=== PATIENT | female | born 1935 | race Caucasian/White ===

== ENCOUNTER 2021-10-20 21:35 | Inpatient (IN) | payer MEDICARE ==
[~2021-10-20] VITALS: Ht 157.5 cm; Wt 52.4 kg
[2021-10-20 22:29] LABS: BASOPHILS ABSOLUTE AUTO 0.02 K/mm3 (0.00-0.23); BASOPHILS PERCENT AUTO 0 % (0-2); EOSINOPHILS ABSOLUTE AUTO 0.03 K/mm3 (0.00-0.68); EOSINOPHILS PERCENT AUTO 0 % (0-6); Hematocrit 32.1 % (33.0-51.0); Hemoglobin 10.7 g/dL (11.5-16.0); IMMATURE GRAN ABSOLUTE AUTO 0.07 K/mm3 (0.00-0.10); IMMATURE GRAN PERCENT AUTO 1 % (0-1); LYMPHOCYTES ABSOLUTE AUTO 1.19 K/mm3 (0.84-5.20); LYMPHOCYTES PERCENT AUTO 10 % (21-46); MONOCYTES ABSOLUTE AUTO 1.11 K/mm3 (0.16-1.47); MONOCYTES PERCENT AUTO 10 % (4-13); Mean Corpuscular HGB 34.2 pg (26.0-34.0); Mean Corpuscular HGB Conc 33.3 g/dL (31.5-36.5); Mean Corpuscular Volume 103 fL (80-100); Mean Platelet Volume 9.9 fL (9.1-12.4); NEUTROPHILS ABSOLUTE AUTO 9.21 K/mm3 (1.96-9.15); NEUTROPHILS PERCENT AUTO 79 % (41-73); Platelet Count 356 K/mm3 (150-400); RDW Coefficient Variation 15.9 % (11.7-14.2); RDW Standard Deviation 58.6 fL (35.1-46.3); Red Blood Cell Count 3.13 M/mm3 (3.80-5.20); White Blood Cell Count 11.63 K/mm3 (4.00-11.30)
[2021-10-20] MEDS ORDERED: WIXELA 250-501 EAC1 INH (22:30)
[2021-10-20] MEDS ORDERED: ALBU90OI INH (22:31)
[2021-10-20] MEDS ORDERED: POLYMYXIN B-TMP10 ML BOTHEYES (22:32)
[2021-10-20] MEDS ORDERED: DILT30 PO (22:33)
[2021-10-20] MEDS ORDERED: DOCU100 PO (22:34)
[2021-10-20] MEDS ORDERED: FURO20 PO (22:34)
[2021-10-20] MEDS ORDERED: FOLI1 PO (22:34)
[2021-10-20] MEDS ORDERED: EUTHYROX50 MCG PO (22:35)
[2021-10-20] MEDS ORDERED: [UNRECOGNIZED DRUG - OTHER] PO (22:37)
[2021-10-20] MEDS ORDERED: DEXAMETHASONE PO (22:38)
[2021-10-20 22:51] LABS: Alanine Aminotransfer (ALT/SGP 19 U/L (12-78); Albumin, Blood 3.8 g/dL (3.4-5.0); Albumin/Globulin Ratio 1.2 (0.8-1.8); Alk Phos 142 U/L (50-136); Anion Gap 7 mmol/L (6-16); Aspartate Aminotrans (AST/SGOT 17 U/L (12-37); Bilirubin, Total 1.3 mg/dL (0.1-1.0); Blood Urea Nitrogen 22 mg/dL (8-24); Bun/Creatinine Ratio 29.1 (12.0-20.0); CO2, Blood 27 mmol/L (21-32); Calcium, Blood 8.9 mg/dL (8.5-10.1); Chloride, Blood 107 mmol/L (98-108); Creatinine, Blood 0.76 mg/dL (0.40-1.00); Globulin, Blood 3.2 g/dL (2.2-4.0); Glomerular Filtration Rate >60 (60-); Glucose, Blood 137 mg/dL (70-99); Potassium, Blood 3.9 mmol/L (3.5-5.5); Sodium, Blood 141 mmol/L (136-145)
[2021-10-21 01:14] LABS: Source, Urine Clean Catch
[2021-10-21 01:29] LABS: Bilirubin, Urine Neg (Neg); Blood, Urine 1+ (Neg); Glucose Qualitative, Urine Neg (Neg); Ketones, Urine Neg (Neg); Leukocyte Esterase, Urine Neg (Neg); Nitrite, Urine Neg (Neg); Protein, Urine 2+ (Neg); Urobilinogen, Urine 1+ (Normal)
[2021-10-21 01:30] LABS: Appearance, Urine Clear (Clear); Color, Urine Yellow (P-Yellow)
[2021-10-21 01:31] LABS: Bacteria Rare /hpf; Mucus Light (0-Heavy); Red Blood Cells, Urine 0-2 /hpf (0-2); Squamous Epithelial Cells Rare /hpf (Few); White Blood Cells, Urine Not Seen /hpf (0-5)
[2021-10-21 03:51] LABS: Percent Saturation 29.2 % (15.0-50.0)
[2021-10-21] MEDS ORDERED: B-12500 MC1 (05:05)
[2021-10-21 05:43] LABS: BASOPHILS ABSOLUTE AUTO 0.01 K/mm3 (0.00-0.23); BASOPHILS PERCENT AUTO 0 % (0-2); EOSINOPHILS ABSOLUTE AUTO 0.05 K/mm3 (0.00-0.68); EOSINOPHILS PERCENT AUTO 1 % (0-6); Hematocrit 25.4 % (33.0-51.0); Hemoglobin 9.1 g/dL (11.5-16.0); IMMATURE GRAN ABSOLUTE AUTO 0.05 K/mm3 (0.00-0.10); IMMATURE GRAN PERCENT AUTO 1 % (0-1); LYMPHOCYTES PERCENT AUTO 13 % (21-46); MONOCYTES ABSOLUTE AUTO 1.11 K/mm3 (0.16-1.47); MONOCYTES PERCENT AUTO 12 % (4-13); Mean Corpuscular HGB 38.2 pg (26.0-34.0); Mean Corpuscular HGB Conc 35.8 g/dL (31.5-36.5); Mean Corpuscular Volume 107 fL (80-100); Mean Platelet Volume 10.3 fL (9.1-12.4); NEUTROPHILS ABSOLUTE AUTO 6.76 K/mm3 (1.96-9.15); NEUTROPHILS PERCENT AUTO 74 % (41-73); Platelet Count 262 K/mm3 (150-400); RDW Coefficient Variation 16.2 % (11.7-14.2); RDW Standard Deviation 59.6 fL (35.1-46.3); Red Blood Cell Count 2.38 M/mm3 (3.80-5.20); White Blood Cell Count 9.18 K/mm3 (4.00-11.30)
[2021-10-21 06:09] LABS: Anion Gap 5 mmol/L (6-16); Blood Urea Nitrogen 18 mg/dL (8-24); CO2, Blood 28 mmol/L (21-32); Calcium, Blood 8.2 mg/dL (8.5-10.1); Chloride, Blood 109 mmol/L (98-108); Creatinine, Blood 0.67 mg/dL (0.40-1.00); Glomerular Filtration Rate >60 (60-); Glucose, Blood 95 mg/dL (70-99); Potassium, Blood 3.7 mmol/L (3.5-5.5); Sodium, Blood 142 mmol/L (136-145)
[2021-10-21 06:28] LABS: Influenza A, PCR NEGATIVE (NEGATIVE); Influenza B, PCR NEGATIVE (NEGATIVE); Resp Syncytial Virus, PCR NEGATIVE (NEGATIVE); SARS-Cov-2 (COVID-19) PCR, MMC NEGATIVE (NEGATIVE)
--- NOTE | 2021-10-21 12:18 | NUR ---
DR. CANO CONTACTED DR. CANO CONSULTED W/ PT THIS AM. PT SON CONTACTED AND DR. CANO CONSULTED W/ HIM PRESENT WELL. PT AND SON WANTED TO TALK W/ FAMILY MEMBER FROM [place] ([place]), FAMILY HAS DECIDED TO GO AHEAD AND BOOK SURGERY, DR. CANO NOTIFIED.
--- NOTE | 2021-10-21 12:32 | NUR ---
PT TO PRE-OP @ THIS TIME. PRE SURG PACKET COMPLETE. PT NPO. VSS.
--- NOTE | 2021-10-21 16:13 | NUR ---
PT TRANSFERED FROM PACU @ THIS TIME PT ARRIVED, LR RUNNING TO GRAVITY. MIDLINE INCISION DERMABOND, CDI. NO REDDNESS OR SWELLING @ THIS TIME. PT C/O PAIN 02/20, PLAN TO MEDICATE PER EMAR. A&O X4. TELE IN PLACE. LUNGS SOUND COURSE T/O. 2L NC. CALL LIGHT W/IN REACH SON & @ BEDSIDE.
--- NOTE | 2021-10-21 16:15 | NUR ---
PERSONAL INSURANCE ADVISOR ACTIVATED PT TELE MONITOR ALARMED, PT HR STATES 175. PT DENIES CP, SOB. TELE MONITOR SHOWED HR DROP TO 84 FOR APPROX 45 SECONDS, THEN JUMPED BACK UP TO 175. THIS RN NOTIFIED CHARGE NURSES @ THIS TIME AND INITIATED RAPID RESPONSE. CHARGE NURSE OBTAINED EKG, RESULTS SHOWED SVT. THIS RN CONTACTED DR. CANO AND DR. BARNETT/ARETHA. DR. BARNETT & DR. CARIAS, RT AND EDGING MACHINE OPERATOR STEPHEN PRESENT @ BEDSIDE T/O RAPID ADINOSINE ADMINISTERED- 6ML @ 1726, 12ML @ 1738. HR WAS SLOWED BUT CONTINUED TO CLIMB BACK UP. PLEASE SEE CHARTED VSS, RANGE FROM 72/45 TO 113/102. PT TRANSFERED TO ICU, BEDSIDE REPORT PROVIDED.
[2021-10-21 17:13] LABS: BASOPHILS ABSOLUTE AUTO 0.03 K/mm3 (0.00-0.23); BASOPHILS PERCENT AUTO 0 % (0-2); EOSINOPHILS ABSOLUTE AUTO 0.02 K/mm3 (0.00-0.68); EOSINOPHILS PERCENT AUTO 0 % (0-6); Hematocrit 27.3 % (33.0-51.0); Hemoglobin 8.9 g/dL (11.5-16.0); IMMATURE GRAN ABSOLUTE AUTO 0.11 K/mm3 (0.00-0.10); IMMATURE GRAN PERCENT AUTO 1 % (0-1); LYMPHOCYTES ABSOLUTE AUTO 0.61 K/mm3 (0.84-5.20); LYMPHOCYTES PERCENT AUTO 4 % (21-46); MONOCYTES ABSOLUTE AUTO 0.27 K/mm3 (0.16-1.47); MONOCYTES PERCENT AUTO 2 % (4-13); Mean Corpuscular HGB 35.3 pg (26.0-34.0); Mean Corpuscular HGB Conc 32.6 g/dL (31.5-36.5); Mean Corpuscular Volume 108 fL (80-100); Mean Platelet Volume 9.9 fL (9.1-12.4); NEUTROPHILS ABSOLUTE AUTO 14.18 K/mm3 (1.96-9.15); NEUTROPHILS PERCENT AUTO 93 % (41-73); Platelet Count 263 K/mm3 (150-400); RDW Coefficient Variation 15.6 % (11.7-14.2); RDW Standard Deviation 61.8 fL (35.1-46.3); Red Blood Cell Count 2.52 M/mm3 (3.80-5.20); White Blood Cell Count 15.22 K/mm3 (4.00-11.30)
[2021-10-21 17:27] LABS: Performing Lab BLOODWORKS; Test Name ABO TYPE
[2021-10-21 17:46] LABS: Alanine Aminotransfer (ALT/SGP 19 U/L (12-78); Albumin, Blood 2.8 g/dL (3.4-5.0); Albumin/Globulin Ratio 1.5 (0.8-1.8); Alk Phos 93 U/L (50-136); Anion Gap 6 mmol/L (6-16); Aspartate Aminotrans (AST/SGOT 18 U/L (12-37); Bilirubin, Total 0.9 mg/dL (0.1-1.0); Blood Urea Nitrogen 11 mg/dL (8-24); Bun/Creatinine Ratio 20.4 (12.0-20.0); CO2, Blood 23 mmol/L (21-32); Calcium, Blood 7.7 mg/dL (8.5-10.1); Chloride, Blood 115 mmol/L (98-108); Creatinine, Blood 0.54 mg/dL (0.40-1.00); Globulin, Blood 1.9 g/dL (2.2-4.0); Glomerular Filtration Rate >60 (60-); Glucose, Blood 125 mg/dL (70-99); Potassium, Blood 3.8 mmol/L (3.5-5.5); Sodium, Blood 144 mmol/L (136-145)
[2021-10-21 17:47] LABS: Total Protein, Blood 4.7 g/dL (6.4-8.2)
--- NOTE | 2021-10-21 18:23 | NUR ---
TRANSFER PT ARRIVED TO ICU 7 FROM MEDICAL FLOOR. REPORT RECEIVED FROM TUYET MUJICA. PT AWAKE, COMPLAINS OF ABDOMINAL PAIN, WINCES AND WITHDRAWS WHEN ABDOMEN LIGHTLY PALPATED. PT'S HR 180S UPON ARRIVAL, SBP 90S. DR. CARIAS AT BEDSIDE AND REQUESTED PAIN MEDICATION FOR PT. 0.25MG DILAUDID GIVEN AND AMIO BOLUS STARTED. PT'S BP THEN DROPPED TO THE 60S. DR. CARIAS GAVE ORDER FOR 1L LR, INFUSING CURRENTLY. DR. CARIAS ORDERED AMIO TO BE STOPPED UNTIL BP BACK UP AND NOW HAS RESTARTED IT AGAIN THAT SBP 90S AND MAP 64, HR 144. WILCOX DRAINING CL YELLOW URINE. CONTINUING TO MONITOR.
--- NOTE | 2021-10-21 18:49 | NUR ---
PT CONVERTED TO SR AT 1832, SBP HOLDING IN THE 120S AND MAP IN THE 90S. PT STILL COMPLAINING OF SOME NAUSEA, ZOFRAN GIVEN. PT HAS SMALL RED, BARELY BLANCHABLE SPOT ON HER COCCYX, MEPILEX PLACED. HEELS ARE SLIGHTLY BOGGY. PT POSITIONED ON HER L SIDE CURRENTLY. PT'S SON AT THE BEDSIDE AND WAS UPDATED BY DR. CARIAS AND THIS RN.
[2021-10-21 20:09] LABS: Hematocrit 27.2 % (33.0-51.0); Hemoglobin 10.1 g/dL (11.5-16.0)
--- NOTE | 2021-10-21 22:00 | NUR ---
SHIFT ASSESSMENT ASSUMED CARE OF PT @ 1900. BEDSIDE REPORT FROM PRIOR NURSE. PT SLEEPING BUT EASILY AROUSABLE. ALERT AND ORIENTED. FOLLOWING DIRECTIONS. IN POSITION OF COMFORT, PT ABLE TO CHANGE POSITIONS. C/O MODERATE TO SEVERE ABD PAIN WITH MOVEMENT. MIDLINE ABD WOUND WITH SCANT SS FLUID THATS DRY FROM UPPER PORTION OF INCISION, WILL MONITOR CLOSELY. PT C/O MODERATE NAUSEA, NO VOMITING. ON 2LPM O2 VIA NC, SLOWLY TITRATED OFF, CURRENTLY ON RA c O2 SATS >95%. AMIO GTT INFUSING, ROLLER PRINTER SHOWING NSR IN THE 70'S, SBP IN THE 130'S. WILCOX CATH DRAINING SIL URINE. NO BM. WILL ADVANCE DIET PT TOLERATES.
[2021-10-22 03:19] LABS: BASOPHILS ABSOLUTE AUTO 0.01 K/mm3 (0.00-0.23); BASOPHILS PERCENT AUTO 0 % (0-2); EOSINOPHILS PERCENT AUTO 0 % (0-6); Hematocrit 27.9 % (33.0-51.0); Hemoglobin 9.3 g/dL (11.5-16.0); IMMATURE GRAN ABSOLUTE AUTO 0.11 K/mm3 (0.00-0.10); IMMATURE GRAN PERCENT AUTO 1 % (0-1); LYMPHOCYTES ABSOLUTE AUTO 0.69 K/mm3 (0.84-5.20); LYMPHOCYTES PERCENT AUTO 4 % (21-46); MONOCYTES ABSOLUTE AUTO 0.92 K/mm3 (0.16-1.47); MONOCYTES PERCENT AUTO 6 % (4-13); Mean Corpuscular HGB 34.4 pg (26.0-34.0); Mean Corpuscular HGB Conc 33.3 g/dL (31.5-36.5); Mean Corpuscular Volume 103 fL (80-100); Mean Platelet Volume 9.7 fL (9.1-12.4); NEUTROPHILS PERCENT AUTO 89 % (41-73); Platelet Count 269 K/mm3 (150-400); RDW Coefficient Variation 15.6 % (11.7-14.2); RDW Standard Deviation 58.3 fL (35.1-46.3); White Blood Cell Count 16.53 K/mm3 (4.00-11.30)
[2021-10-22 03:40] LABS: Alanine Aminotransfer (ALT/SGP 93 U/L (12-78); Albumin, Blood 2.8 g/dL (3.4-5.0); Albumin/Globulin Ratio 1.1 (0.8-1.8); Alk Phos 134 U/L (50-136); Anion Gap 5 mmol/L (6-16); Aspartate Aminotrans (AST/SGOT 76 U/L (12-37); Bilirubin, Total 1.1 mg/dL (0.1-1.0); Blood Urea Nitrogen 10 mg/dL (8-24); Bun/Creatinine Ratio 18.9 (12.0-20.0); CO2, Blood 26 mmol/L (21-32); Calcium, Blood 7.8 mg/dL (8.5-10.1); Chloride, Blood 110 mmol/L (98-108); Creatinine, Blood 0.53 mg/dL (0.40-1.00); Globulin, Blood 2.5 g/dL (2.2-4.0); Glomerular Filtration Rate >60 (60-); Glucose, Blood 136 mg/dL (70-99); Potassium, Blood 4.3 mmol/L (3.5-5.5); Sodium, Blood 141 mmol/L (136-145); Total Protein, Blood 5.3 g/dL (6.4-8.2)
--- NOTE | 2021-10-22 06:56 | NUR ---
SHIFT SUMMARY PT REMAINS ALERT AND ORIENTED. ABLE TO SLEEP A LITTLE DURING THE NIGHT. PT HAD DIFFICULTY FINDING A POSITION OF COMFORT. MEDICATED X 2 c PRN PAIN MEDS, PT HESITANT TO TAKE MEDS DUE TO BEING DIZZY AFTER. PT HAD MODERATE NAUSEA T/O THE NIGHT, MEDICATED c PRN ANTIEMETIC. AMIODARONE GTT CONTINUES, NSR ON THE BRADDISHER. PT REMAINED OFF O2 T/O NIGHT. NO CHANGES TO ABDOMINAL INCISION. PT TOLERATING SMALL SIPS OF WATER, STILL HESITANT TO TRY ADVANCING DIET. WILCOX CATH DRAINING SIL URINE. NO SIGNIFICANT ACUTE CHANGES DURING THE NIGHT. REPORT TO ONCOMING NURSE.
--- NOTE | 2021-10-22 08:10 | NUR ---
ASSUMED CARE / DR CARIAS: REPORT RECEIVED FROM LES Wyman RN. ASSUMED CARE OF THIS PT AT APPROX 0700. ON ASSESSMENT, THE PT IS AWAKE, A&O TO ALL. SHE REPORTS HAVING MILD PAIN TO HER ABDOMEN & BACK THAT WORSENS W/ MOVEMENT BUT IS OVERALL "COMFORTABLE." LS ARE DIM IN BASES, PT STS HAVING COPD AT BASELINE & SOME SOB RELATED TO THIS. CURRENTLY ON RA W/ O2 SATS > 95%. MONITOR SHOWS SR W/ OCCASIONAL PACs, HR 80s. HTN INCREASED W/ PAIN. PT STS HAVING SOME MILD INTERMITTENT NAUSEA, IS TOLERATING SMALL SIPS OF COLD WATER WELL & STS THAT THIS HELPS W/ NAUSEA. BT HYPOACTIVE T/O. WILCOX PATENT/ DRAINING YELLOW URINE. ORDERS TO D/C WILCOX THIS SHIFT, WILL COMPLETE THIS AM. SKIN CONDITION OVERALL INTACT, PT ABLE TO HELP STAFF W/ REPOSITIONING. MIDLINE ABDOMINAL INCISION W/ MEDICAL ADHESIVE TO CLOSE, SITE WNL. DR CARIAS AT BEDSIDE THIS AM TO EVAL PT. DISCUSSED PT's INCREASING HTN & ORDERS FOR CARDIZEM AT BASELINE. HE FEELS THAT THE PT WILL LIKELY TRANSITION TO HOME DOSE OF CARDIZEM ONCE AMIODARONE DRIP IS COMPLETED, INSTEAD OF TRANSITIONING TO PO AMIODARONE. ONCE AMIODARONE DRIP IS COMPLETED AT APPROX 1600 THIS AFTERNOON, THE PT WILL LIKELY BE ABLE TO TRANSFER TO MEDICAL STATUS. NO OTHER CHANGES AT THIS TIME. WILL CONTINUE TO MONITOR & UPDATE NEEDED.
--- NOTE | 2021-10-22 12:30 | NUR ---
DR CANO: PROVIDER AT BEDSIDE THIS AFTERNOON TO EVAL PT. ABD REMAINS TENDER TO PALPATION BUT IS TO BE EXPECTED. DR CANO ENCOURAGES THE PT TO TAKE SIPS OF WATER & OTHER CLEAR LIQUIDS ONLY BEFORE ATTEMPTING MORE FOODS. DR CAON IS AGREEABLE W/ PLAN TO STATUS CHAGNE THE PT ONCE AMIODARONE DRIP HAS COMPLETED. NO CHANGES AT THIS TIME.
--- NOTE | 2021-10-22 14:01 | NUR ---
10/22/21 1401 Salome Jacobs VERIFICATIONS: EDIT CHART.
--- NOTE | 2021-10-22 17:17 | NUR ---
SHIFT SUMMARY / UPDATE: NO ACUTE CHANGES SINCE PRIOR UPDATES. PT REMAINS A&O, PLEASANT & COOPERATIVE. SHE CONTINUES TO HAVE C/O ABDOMINAL & BACK PAIN, ALLEVIATED FOR A SHORT PERIOD OF TIME W/ FENTANYL PER EMAR, TRAMADOL x1 GIVEN THIS EVENING. LS ARE CLEAR T/O, PT ON RA W/ O2 SATS > 95%. MONITOR SHOWS SR W/ HR 70-80s, HTN INCREASED W/ PAIN. FIRST DOSE OF CARDIZEM GIVEN THIS EVENING AT APPROX 1710, AMIODARONE DRIP TO BE STOPPED AT 1800. SHE IS TOLERATING SMALL SIPS OF WATER & HAS REQUESTED A VANILLA ENSURE TO SIP THIS EVENING. NAUSEA INCREASED SLIGHTLY W/ PRN ZOFRAN GIVEN PER EMAR. WILCOX PATENT/ DRAINING YELLOW URINE. WILL D/C WILCOX WHEN PT GETS UP TO CHAIR FOR DINNER THIS EVENING. SKIN CONDITION OVERALL INTACT, Q2H REPOSITIONING TO MAINTAIN SKIN INTEGRITY. MIDLINE ABDOMINAL INCISION REMAINS WNL W/ SURGICAL ADHESIVE IN PLACE, OTA. INFANTE, MEDICAL STUDENT, AT BEDSIDE TO DISCUSS THE PT's HOME MEDICATIONS W/ HER SON, ELOINA. SHE HAS REPORTED THIS TO DR CARIAS & QUINTIN CD ORDERED. DR CARIAS ALSO STS THAT THE PT IS OKAY TO BE MEDICAL W/ TELE STATUS, THIS RN PLACED ORDERS. WILL CONTINUE TO MONITOR & REPORT OFF TO ONCOMING RN.
--- NOTE | 2021-10-22 20:15 | NUR ---
ASSESSMENT/ASSUMED CARE PT RESTING QUIETLY. OPENS EYES TO VERBAL STIMULI. SPEECH CLEAR AND APPROP. FOLLOWS INSTRUCTIONS. LUNGS CLEAR BUT DECREASED ON ROOMAIR. INSTRUCTED PT IN USE OF IS AND EXPLAINED NEED TO PREVENT PNEUMONIA. RESP EVEN AND NONLABORED. SHALLOW BREATHS NOTED. HEART RATE IRREGULAR AT TIMES. RATE 60-70'S. BP ELEVATED. PT C/O ABD AND BACK PAIN 9-04/22. WILL MED WITH FENTANYL 25 MCQ. TEMP 100.0, WILL GIVE TYLENOL. BT+HYPOACTIVE. ABD SOFT. MIDLINE ABD INCISION NOTED, NO DRAINAGE. PT STATES,"I KEEP BURPING AND THAN I FEEL BETTER". DENIES PASSING GAS AT THIS TIME. PANCHO N/V. ATTENDS CD&I. COCCYX DRSG INTACT, SITE WITH REDNESS AT COCCYX BUT BLANCHABLE. PT TURNED TO SIDE TO KEEP OFF COCCXY. HEELS BOGGY AND FEET COOL TO TOUCH. HEEL ELEVATED OFF BED.
--- NOTE | 2021-10-22 20:41 | NUR ---
PAIN/FEVER PT MED WITH TYLENOL FOR TEMP 100.0 AND FENTANYL 25 MCQ FOR ABD AND BACK PAIN
--- NOTE | 2021-10-23 | NUR ---
PAIN PT MOVING SELF IN BED. WHEN ASKED ABOUT PAIN PT STATES,"I'M GOOD RIGHT NOW. I DON'T NEED ANYTHING".
--- NOTE | 2021-10-23 03:40 | NUR ---
PAIN/FLATUS PT SLEEPING, AWAKENS EASILY TO VERBAL STIMULI. LABS DRAWN. VS DONE. PT UP TO BSC TO VOID. PASSING FLATUS. ATTENDS CHANGED. BACK TO BED. PT REPORTS BACK PAIN 10/10 MED WITH ULTRAM AND FENTANYL. PT MOVING SELF IN BED.
[2021-10-23 03:41] LABS: BASOPHILS ABSOLUTE AUTO 0.01 K/mm3 (0.00-0.23); BASOPHILS PERCENT AUTO 0 % (0-2); EOSINOPHILS ABSOLUTE AUTO 0.03 K/mm3 (0.00-0.68); EOSINOPHILS PERCENT AUTO 0 % (0-6); Hematocrit 24.6 % (33.0-51.0); Hemoglobin 8.4 g/dL (11.5-16.0); IMMATURE GRAN ABSOLUTE AUTO 0.05 K/mm3 (0.00-0.10); IMMATURE GRAN PERCENT AUTO 1 % (0-1); LYMPHOCYTES ABSOLUTE AUTO 0.84 K/mm3 (0.84-5.20); LYMPHOCYTES PERCENT AUTO 8 % (21-46); MONOCYTES ABSOLUTE AUTO 0.85 K/mm3 (0.16-1.47); MONOCYTES PERCENT AUTO 9 % (4-13); Mean Corpuscular HGB 34.7 pg (26.0-34.0); Mean Corpuscular HGB Conc 34.1 g/dL (31.5-36.5); Mean Corpuscular Volume 102 fL (80-100); Mean Platelet Volume 10.1 fL (9.1-12.4); NEUTROPHILS ABSOLUTE AUTO 8.21 K/mm3 (1.96-9.15); NEUTROPHILS PERCENT AUTO 82 % (41-73); Platelet Count 250 K/mm3 (150-400); RDW Coefficient Variation 15.5 % (11.7-14.2); RDW Standard Deviation 56.5 fL (35.1-46.3); Red Blood Cell Count 2.42 M/mm3 (3.80-5.20); White Blood Cell Count 9.99 K/mm3 (4.00-11.30)
[2021-10-23 04:12] LABS: Alanine Aminotransfer (ALT/SGP 56 U/L (12-78); Albumin, Blood 2.7 g/dL (3.4-5.0); Albumin/Globulin Ratio 1.2 (0.8-1.8); Alk Phos 109 U/L (50-136); Anion Gap 6 mmol/L (6-16); Aspartate Aminotrans (AST/SGOT 28 U/L (12-37); Bilirubin, Total 1.1 mg/dL (0.1-1.0); Blood Urea Nitrogen 9 mg/dL (8-24); CO2, Blood 25 mmol/L (21-32); Calcium, Blood 7.9 mg/dL (8.5-10.1); Chloride, Blood 110 mmol/L (98-108); Globulin, Blood 2.3 g/dL (2.2-4.0); Glomerular Filtration Rate >60 (60-); Glucose, Blood 83 mg/dL (70-99); Potassium, Blood 3.4 mmol/L (3.5-5.5); Sodium, Blood 141 mmol/L (136-145)
--- NOTE | 2021-10-23 05:34 | NUR ---
SHIFT SUMMARY PT RESTING QUIETLY. TURNING AND MOVING SELF IN BED. UP TO BSC TWICE DURING THE NIGHT. VOIDING AND PASSING GAS. UP WITH STANDBY ASSIST. PT MED WITH FENTANYL 25 MCQ TWICE AND ULTRAM 25 MG ONCE DURING THE NIGHT FOR ABD AND BACK PAIN WITH GOOD RESULTS. MED WITH TYLENOL ONCE FOR TEMP 100.0, NOW TEMP IN NORMAL. PT TAKING SIPS OF WATER. DENIES N/V. IV 29G TO RIGHT WRIST ABLE TO DRAW BLOOD. NS INFUSING AT 75 ML/HR. MIDLINE ABD INCISION UNCHANGED DURING THE NIGHT. NO ACUTE CHANGE. REPORT TO ON COMING NURSE
--- NOTE | 2021-10-23 08:15 | NUR ---
ASSUMED CARE / DR GUPTA: REPORT RECEIVED FROM AREN Mendes RN. ASSUMED CARE OF THIS PT AT APPROX 0700. ON ASSESSMENT, THE PT IS AWAKE, A&O TO ALL. SHE STS HAVING SOME INCREASED ABDOMINAL/ BACK PAIN W/ MOVEMENTS, OTHERWISE STS COMFORT. WHEEZING NOTED IN UPPER LOBES AFTER TRANSFERRING TO BS & CHAIR THIS AM. PT ON RA W/ O2 SATS > 95%. MONITOR SHOWS SR W/ HR 70-80s, HTN NOTED THIS AM W/ SCHEDULED CARDIZEM GIVEN PER ORDERS. PT TOLERATING SMALL AMNTS OF CLEAR LIQUIDS. IS NOW PASSING MORE FLATUS, PER REPORT. ABD REMAINS MODERATELY DISTENDED, NO BM YET. WILCOX D/C'd YESTERDAY EVENING & PT VOIDING W/O DIFFICULTY. SKIN CONDITION OVERALL FRAGILE, INTACT. DEPENDENT TRACE EDEMA NOTED TO BUE/ FOREARMS & BLE. MIDLINE ABD INCISION W/ SURGICAL ADHESIVE WNL, PRIVACY DIRECTOR. DR GUPTA AT BEDSIDE THIS AM TO EVAL THE PT. DISCUSSED USE OF INCENTIVE SPIROMETER. BD PROTOCOL ORDERED PT STS USING NEBULIZER TXs AT HOME. POTASSIUM REPLETION PER ORDERS, WILL RECHECK BMP THIS AFTERNOON AT 1500. NO OTHER CHANGES AT THIS TIME. WILL CONTINUE TO MONITOR & UPDATE NEEDED.
--- NOTE | 2021-10-23 10:25 | NUR ---
DR CANO: PROVIDER AT BEDSIDE TO EVAL PT. SHE STS OKAY TO ADVANCE TO FULL LIQUIDS IF THE PT WOULD PREFER THIS. CONTINUE WORKING W/ PHYSICAL & OCCUPATIONAL THERAPIES TO INCREASE GUT MOTILITY. NO OTHER CHANGES AT THIS TIME.
--- NOTE | 2021-10-23 11:52 | NUR ---
Spoke with Primary RN Cassi and discussed case. Supportive visit with Pt this AM. Pt reports pain is tolerable and is managed with current regimen. Pt's son at bedside. Pt reports moving here to [place] about a month ago to live with her son. She reports she was not caring for herself well and was not eating well. Pt's son reports prior to hospital stay Pt had a good appetite and was gaining wait. Son reports at [place] Pt is independent of her ADLs. Inquired about POLST/AD. Pt is unsure if she has completed one. Son reports he will look through her things. Continued therapeutic listening. Pt does report being [employer]an and would appreciate a visit from . No other concerns reported at this time. Palliative Care will remain available.
[2021-10-23 15:26] LABS: Anion Gap 5 mmol/L (6-16); Blood Urea Nitrogen 12 mg/dL (8-24); CO2, Blood 26 mmol/L (21-32); Calcium, Blood 8.1 mg/dL (8.5-10.1); Chloride, Blood 110 mmol/L (98-108); Glomerular Filtration Rate >60 (60-); Glucose, Blood 113 mg/dL (70-99); Sodium, Blood 141 mmol/L (136-145)
--- NOTE | 2021-10-23 17:55 | NUR ---
SHIFT SUMMARY / TRANSFER TO SURGICAL FLOOR: NO ACUTE CHANGES SINCE PRIOR UPDATES. PT REMAINS A&O, PLEASANT & COOPERATIVE. SHE IS MORE MOBILE THIS AFTERNOON & PAIN HAS BEEN OVERALL BETTER CONTROLLED THAN YESTERDAY. LS OCCASIONALLY WHEEZING IN UPPER LOBES W/ EXERTION, PRN NEBS & INHALER ORDERED. PT ON RA W/ O2 SATS > 95%. MONITOR SHOWS SR W/ OCCASIONAL PACs, HR 70-80s, BP STABLE. PT TOLERATING INCREASED AMNTS OF PO INTAKE THIS SHIFT, ENJOYS VANILLA PUDDING & VANILLA ENSURE. VOIDS DARK YELLOW, STRONG-SMELLING URINE W/O DIFFICULTY, PO WATER INTAKE ENCOURAGED. ATTENDS IN PLACE FOR OCCASIONAL URGENCY INCONTINENCE, PER PT. SKIN OVERALL FRAGILE, INTACT. MIDLINE ABDOMINAL INCISION W/ SURGICAL ADHESIVE WNL. PROPHYLACTIC COCCYX DRESSING IN PLACE W/ BLANCHABLE REDNESS NOTED BENEATH DRESSING. Q2H REPOSITIONING TO MAINTAIN SKIN INTEGRITY. REPORT HAS BEEN GIVEN TO KERWIN Jin, SURGICAL FLOOR RN TO ASSUME CARE. THE PT, HER BELONGINGS, CHART & MEDICATION HAVE ALL BEEN TAKEN TO ROOM 228 AT APPROX 1745. HER SON, ELOINA, IS WITH HER AT THIS TIME.
--- NOTE | 2021-10-23 19:07 | NUR ---
SHIFT SUMMARY PT IS POD#2 FROM R MAURA COLECTOMY. PT TRANSFERRED FROM ICU THIS AFTERNOON. SHE REPORTED FEELING SOB, RT PROVIDED A BREATHING TX AND PT DECLINED IMPROVEMENT IN BREATHING. PT APPEARS TO HAVE A POSITIVE FLUID BALANCE, JASON RN NOTIFIED. PT TOLERATING FULL LIQUIDS. PAIN MANAGED. REPORT GIVEN TO JASON BENZ.
--- NOTE | 2021-10-24 04:03 | NUR ---
SHIFT SUMMARY NO ACUTE CHANGES. PT REPORTS LOWER ABD PAIN. PO ULTRAM PER ORDERS. ABD INCISION REMAINS CDI. PT REPORTS FLATUS AND HAS BEEN UP IN CHAIR A FEW TIMES T/O THE NIGHT. 1 ASSIST WHEN OOB TO BSC. PT IS WHEEZY T/O--NEBS PER RT. CALL LIGHT WITHIN REACH.
[2021-10-24 07:04] LABS: Result BP
--- NOTE | 2021-10-24 11:26 | NUR ---
Spiritual Care Visit... At the request of a staff volunteer. Pt. is sitting up in bed. Family member (presumably son) is present. Pt. welcomed my visit. I confirmed she is interested in having a pit steward come visit her. Contacted Arnoldo Chamberlain by phone who will see Pt. today.
--- NOTE | 2021-10-24 17:17 | NUR ---
SHIFT SUMMARY POD 3 R OPEN MAURA COLECTOMY PT PASSING SMALL AMOUNT OF FLATUS, ABDOMEN REMAINS FIRM TO TOUCH. MIDLINE INCISION CDI WITH WOUND GLUE, TOLERATING HER DIET WELL. DENIED PAIN DURING SHIFT. AMBULATING WELL WITH PT/OT. NSR ON TELE.
--- NOTE | 2021-10-25 05:12 | NUR ---
DIRECTOR TRADING SUMMARY PT AAOX4, CALLS APPROPRIATELY FOR ASSIST. ABD FIRM WITH MILD DISTENTION, TENDER ON PALPATION. PT HAS BEEN COMPLAINING OF SOME STOMACH AND THROAT DISCOMFORT AFTER SPITTING UP YELLOW STOMACH CONTENTS A FEW TIMES TONIGHT. MEDICATED EARLY WITH IV PROTONIX AND HAVE BEEN MEDICATING WITH PO TRAMADOL FOR PAIN. PT HAS BEEN ABLE TO SLEEP A FEW HOURS OFF AND ON TONIGHT. PT BELCHING FREQUENTLY AND PASSING FLATUS OCCASIONALLY, NO BM TONIGHT HOWEVER. VSS, WILL CONTINUE TO MONITOR.
[2021-10-25 09:50] LABS: Anion Gap 7 mmol/L (6-16); Blood Urea Nitrogen 13 mg/dL (8-24); Bun/Creatinine Ratio 21.4 (12.0-20.0); CO2, Blood 27 mmol/L (21-32); Calcium, Blood 8.9 mg/dL (8.5-10.1); Chloride, Blood 103 mmol/L (98-108); Creatinine, Blood 0.61 mg/dL (0.40-1.00); Glomerular Filtration Rate >60 (60-); Glucose, Blood 143 mg/dL (70-99); Potassium, Blood 4.4 mmol/L (3.5-5.5); Sodium, Blood 137 mmol/L (136-145)
--- NOTE | 2021-10-25 18:41 | NUR ---
SHIFT SUMMARY PT POD #4 FOR OPEN R HEMICOLECTOMY. C/O ABD PAIN AND NAUSEA WITH VOMITTING WITH AM. FREQUENT BELCHING NOTED. MIDLINE INCISION WITH WOUND GLUE CDI. NG TUBE INSERTED IN ORDER TO ALLEVIATE ABD PRESSURE SINCE ABD IS DISTENDED. NG OUTPUT IS GREEN BROWN. VSS.
[2021-10-26 00:46] LABS: BASOPHILS ABSOLUTE AUTO 0.02 K/mm3 (0.00-0.23); BASOPHILS PERCENT AUTO 0 % (0-2); EOSINOPHILS ABSOLUTE AUTO 0.02 K/mm3 (0.00-0.68); EOSINOPHILS PERCENT AUTO 0 % (0-6); Hematocrit 25.5 % (33.0-51.0); Hemoglobin 8.8 g/dL (11.5-16.0); IMMATURE GRAN ABSOLUTE AUTO 0.04 K/mm3 (0.00-0.10); IMMATURE GRAN PERCENT AUTO 0 % (0-1); LYMPHOCYTES ABSOLUTE AUTO 0.45 K/mm3 (0.84-5.20); LYMPHOCYTES PERCENT AUTO 4 % (21-46); MONOCYTES PERCENT AUTO 10 % (4-13); Mean Corpuscular HGB 34.9 pg (26.0-34.0); Mean Corpuscular HGB Conc 34.5 g/dL (31.5-36.5); Mean Corpuscular Volume 101 fL (80-100); Mean Platelet Volume 9.5 fL (9.1-12.4); NEUTROPHILS ABSOLUTE AUTO 8.87 K/mm3 (1.96-9.15); NEUTROPHILS PERCENT AUTO 85 % (41-73); Platelet Count 393 K/mm3 (150-400); RDW Coefficient Variation 16.1 % (11.7-14.2); RDW Standard Deviation 58.5 fL (35.1-46.3); Red Blood Cell Count 2.52 M/mm3 (3.80-5.20)
[2021-10-26 01:03] LABS: Anion Gap 11 mmol/L (6-16); Blood Urea Nitrogen 19 mg/dL (8-24); Bun/Creatinine Ratio 22.9 (12.0-20.0); CO2, Blood 26 mmol/L (21-32); Calcium, Blood 8.3 mg/dL (8.5-10.1); Chloride, Blood 102 mmol/L (98-108); Creatinine, Blood 0.83 mg/dL (0.40-1.00); Glomerular Filtration Rate >60 (60-); Glucose, Blood 116 mg/dL (70-99); Magnesium, Blood 1.6 mg/dL (1.6-2.4); Potassium, Blood 3.8 mmol/L (3.5-5.5); Sodium, Blood 139 mmol/L (136-145)
--- NOTE | 2021-10-26 03:05 | NUR ---
CHANGES IN TELEMETRY NOTIFIED BY [employer] SALLY AT 2333 THAT PT HR ELEVATED TO 180'S. ASSESSED PT WHO WAS ASYMPTOMATIC AND LAYING IN BED. OVER THE NEXT FEW MINUTES HR BOUNCED BETWEEN 150-180'S. NOTIFIED DR ANGEELS WHO GAVE ORDER FOR EKG. EKG OBTAINED WHICH SHOWED SVT 180. NOTIFIED DR TELLES OF EKG RESULTS, RECIEVED ORDER FOR 5 MG IV LOPRESSOR AND CBC/BMP/MAG. HR DECREASED TO 130-140'S FAIRLY QUICKLY AND THEN FINALLY CONVERTED BACK TO NSR 80'S. PT RESTING AT THIS TIME.
--- NOTE | 2021-10-26 04:28 | NUR ---
CLAY [employer]ODUCTS MACHINE OPERATOR SUMMARY PT AAOX4 AND PLEASANT. NGT TO LOW INTERMITTENT SUCTION, DRAINING GREEN/YELLOW FLUID. ABD DISTENTION IMPROVED COMPARED TO YESTERDAY. PT REPORTS ABD RELIEF SINCE NGT PLACED. PT HAD INSTANCE OF SVT WITH HR UP TO 190'S, GAVE IV LOPRESSOR PER DR TELLES. SEE PREVIOUS NOTE. PT NOW NSR 80-90'S. PT UP TO BSC WITH 1 ASSIST. URINE DARK SIL PER DAMPER FITTER. WILL CONTINUE TO MONITOR.
--- NOTE | 2021-10-26 05:10 | NUR ---
NOTIFIED BY [employer] SALLY THAT PT HR TACHING UP TO 130-170'S AGAIN. NOTIFIED DR TELLES, RECIEVED ORDER FOR ANOTHER 5 MG IV LOPRESSOR.
--- NOTE | 2021-10-26 18:35 | NUR ---
SHIFT SUMMARY PATIENT ALERT WHEN AWAKE, BUT FREQUENTLY DOZED THROUGHOUT SHIFT. GENERALIZED WEAKNESS AND DECONDITIONED. SBA TO TOILET OR COMMODE, HELP WITH LINES. NG TUBE PLACED IN LOW OUTPUT. DENIES ABD PAIN. MIDLINE ABD INCISION C/D/I. FREQUENT LIQUID INC STOOL THIS SHIFT. TELE SHOWED SVT AT BEGINNING OF SHIFT. THIS RESOLVED WITH CARDIZEM TO NSR. CARDIZEM IS CRUSHED AND FLUSHED THROUGH NG TUBE, CLAMPED FOR 30 MINUTES. CREAM ORDERED ON EMAR FOR RECTAL BURNING/PAIN. PLAN TO POSSIBLY REMOVE NG TUBE TOMORROW 10/27/21. WILL REPORT TO OFFICE NURSE PRACTITIONER RN.
--- NOTE | 2021-10-27 06:45 | NUR ---
PT REPORTING FEELING IF HEART WAS RACING WHILL OOB FOR BSC. PT WAS PLACED BACK TO BED.VS TAKEN.HEART RATE STILL IN 90'S.I GAVE CARDIZEM PER NG THAT WAS SCHEDULED FOR 729.
--- NOTE | 2021-10-27 07:20 | NUR ---
CALL FROM [facility]-HEART RATE INTO 130'S. I CALLED DR BEGUM AND RECEIVED ORDER FOR IV METOPROLOL.
[2021-10-27 07:32] LABS: Anion Gap 10 mmol/L (6-16); Blood Urea Nitrogen 17 mg/dL (8-24); Bun/Creatinine Ratio 30.2 (12.0-20.0); CO2, Blood 24 mmol/L (21-32); Calcium, Blood 7.2 mg/dL (8.5-10.1); Chloride, Blood 105 mmol/L (98-108); Creatinine, Blood 0.56 mg/dL (0.40-1.00); Glomerular Filtration Rate >60 (60-); Glucose, Blood 57 mg/dL (70-99); Potassium, Blood 2.9 mmol/L (3.5-5.5); Sodium, Blood 139 mmol/L (136-145)
--- NOTE | 2021-10-27 07:58 | NUR ---
CALL FROM FROM [facility] REPORTING PT IN AFIB WITH RATE 66, I CALLED DR BEGUM AND ADVISED OF ABOVE AND PT REPORTS FEELING SOME BETTER. I CONFIRMED ORDERS REGARDING CHANGE OF CARDIZEM ORDER AND DR BEGUM GAVE VERBAL ORDER TO HOLD 0730 NEWLY ORDERED DOSE,GIVE 30 MG NOW ADDITIONAL TO MY 0645 DOSE GIVEN AND FOLLOW NEW ORDERS STARTING WTIH 1130 DOSE.
--- NOTE | 2021-10-27 19:46 | NUR ---
SHIFT SUMMARY PT A&OX4, VSS/RA, TELE AFIB 91, CONTINENT VOIDS AND BMS (MULTIPLE LOOSE). NG CLAMPED T/O SHIFT, DENIED N&V/MI PO H20/BROTH-VERY SMALL AMT & MI PO CRUSHED PILLS WITH H20, PULLED NG TUBE AT 1930 IN ACCORDANCE WITH SURGEON TRIAL CLAMP/DC TUBE DISCUSSION THIS AM. POD6 R HEMICOLECTOMY WITH MIDLINE DERMABOND INCISION TECHNOLOGY PROJECT MANAGER. STAND PIVOT W/FWW/GB/MOD ASSIST FOR LINES/SAFETY TO CHAIR/BSC/BED, UP TO CHAIR T/O SHIFT. PAIN MANAGED WITH 25 MCGS FENT PRN. REPORT PROVIDED TO ALKA BENZ.
[2021-10-28 04:04] LABS: BASOPHILS ABSOLUTE AUTO 0.02 K/mm3 (0.00-0.23); BASOPHILS PERCENT AUTO 0 % (0-2); EOSINOPHILS ABSOLUTE AUTO 0.05 K/mm3 (0.00-0.68); EOSINOPHILS PERCENT AUTO 1 % (0-6); Hemoglobin 7.7 g/dL (11.5-16.0); IMMATURE GRAN ABSOLUTE AUTO 0.04 K/mm3 (0.00-0.10); IMMATURE GRAN PERCENT AUTO 0 % (0-1); LYMPHOCYTES PERCENT AUTO 5 % (21-46); MONOCYTES ABSOLUTE AUTO 0.91 K/mm3 (0.16-1.47); MONOCYTES PERCENT AUTO 10 % (4-13); Mean Corpuscular HGB 34.8 pg (26.0-34.0); Mean Corpuscular HGB Conc 33.5 g/dL (31.5-36.5); Mean Corpuscular Volume 104 fL (80-100); Mean Platelet Volume 9.8 fL (9.1-12.4); NEUTROPHILS ABSOLUTE AUTO 8.09 K/mm3 (1.96-9.15); NEUTROPHILS PERCENT AUTO 84 % (41-73); Platelet Count 354 K/mm3 (150-400); Red Blood Cell Count 2.21 M/mm3 (3.80-5.20); White Blood Cell Count 9.61 K/mm3 (4.00-11.30)
[2021-10-28 04:21] LABS: Anion Gap 6 mmol/L (6-16); Blood Urea Nitrogen 11 mg/dL (8-24); Bun/Creatinine Ratio 20.4 (12.0-20.0); CO2, Blood 29 mmol/L (21-32); Calcium, Blood 7.6 mg/dL (8.5-10.1); Chloride, Blood 105 mmol/L (98-108); Creatinine, Blood 0.54 mg/dL (0.40-1.00); Glomerular Filtration Rate >60 (60-); Glucose, Blood 128 mg/dL (70-99); Magnesium, Blood 2.1 mg/dL (1.6-2.4); Potassium, Blood 3.6 mmol/L (3.5-5.5); Sodium, Blood 140 mmol/L (136-145)
--- NOTE | 2021-10-28 04:55 | NUR ---
SHIFT SUMMARY PT HAS SLEPT MOST OF THE NIGHT. PT COMPLAINED OF SEVERE ABD/BACK PAIN INTERMITTENTLY T/O SHIFT. PAIN WORSE AT THE START OF THE SHIFT, PT MEDICATED AND REPOSITIONED FOR COMFORT PRN WITH AFFECT. ABD INCISION C/D/I. HR NSR ON TELE OVERNIGHT WITH NO EPISODES OF AFIB. VITALS ARE STABLE. PT STILL HAVING LIQUID STOOLS. NO N/V THIS SHIFT, BUT PT IS STILL AFRAID TO EAT AND DOES NOT WANT TO TAKE IN ANY LIQUIDS OR PO PAIN MEDICATIONS IN FEAR OF GETTING NAUSEATED AGAIN. NG TUBE PULLED BY EDGAR RN AND PT IS TOLERATING. IVF INFUSING ORDERED. VITALS STABLE. NO ACUTE CHANGES OVERNIGHT. BED IN LOWEST POSITION, CALL LIGHT WITHIN REACH.
--- NOTE | 2021-10-28 20:22 | NUR ---
SHIFT SUMMARY PT A&OX4, VSS/RA, PAIN MANAGED WELL WITH ULTRAM, MI PO FULL LIQUID DIET, VOIDING WELL, BM X1 TODAY, UP TO BSC/CHAIR T/O SHIFT, AMB W/MIN ASSIST FWW & GB. TELE WAS NS WITH WNL BPM T/O SHIFT, THEN PER TELE APPROX 1700 CHANGED INTO AFIB @ 140S, DR WAS CALLED AND RECEIVED 1X ORDER FOR 5 MG METOPROLOL IV, AFTER GIVEN PT WAS AFIB @ 120 BPM, AWAKE/ALERT, DENIES CP/PRESSURE. FAMILY AT BEDSIDE. REPORT PROVIDED TO IFEANYI BENZ.
--- NOTE | 2021-10-28 20:24 | NUR ---
PTS HEART RATE PER TELE 120-130 AND RHYTHMN IS AFIB.PT DENIES CP.REPORTS SOB PT RECEIVED CARDIZEM CD @ 1346 AND IV METOPROLOL @ 1816 AND REPORTED PER TELE DID NOT CONVERT BACK TO SINUS.REMAINS HIGHER RATE.PT ALSO HAS JVD,2+BLE EDEMA AND RECEIVED LASIX @ 1126.HOWEVER, PTS I/O APPEAR FAIRLY BALANCED. PT IS CURRENTLY RECEIVING NS @ [address] TELLES AND ADVISED OF ABOVE.RECEIVED ORDERS FOR STOP IV FLUIDS AND GIVE CARDIZEM 10 MG IV X1.
--- NOTE | 2021-10-28 22:50 | NUR ---
PT TEL-SINUS TACH WITH PACS, BUT STILL RATE 120'S I CALLED DR TELLES AND RECEIVED ORDER FOR LOPRESSOR IV X1.
--- NOTE | 2021-10-28 23:59 | NUR ---
PT WAS WAVERING BACK INTO AFIB.IV LOPRESSOR WAS GIVEN AT 2307 AND PT HAS NOW CONVERTED TO SINUS RHYTHMN.
--- NOTE | 2021-10-29 01:56 | NUR ---
PT REMAINS IN SINUS RHYTHMN AT THIS TIME.RATE OF 72.PT IS SLEEPING.
[2021-10-29 04:52] LABS: Hematocrit 22.8 % (33.0-51.0); Hemoglobin 7.6 g/dL (11.5-16.0); Mean Corpuscular HGB 34.9 pg (26.0-34.0); Mean Corpuscular HGB Conc 33.3 g/dL (31.5-36.5); Mean Corpuscular Volume 105 fL (80-100); Mean Platelet Volume 9.9 fL (9.1-12.4); Platelet Count 372 K/mm3 (150-400); RDW Coefficient Variation 16.2 % (11.7-14.2); Red Blood Cell Count 2.18 M/mm3 (3.80-5.20); White Blood Cell Count 10.74 K/mm3 (4.00-11.30)
[2021-10-29 05:11] LABS: Anion Gap 5 mmol/L (6-16); Blood Urea Nitrogen 9 mg/dL (8-24); Bun/Creatinine Ratio 15.7 (12.0-20.0); CO2, Blood 29 mmol/L (21-32); Calcium, Blood 7.6 mg/dL (8.5-10.1); Chloride, Blood 106 mmol/L (98-108); Creatinine, Blood 0.57 mg/dL (0.40-1.00); Glomerular Filtration Rate >60 (60-); Glucose, Blood 128 mg/dL (70-99); Potassium, Blood 3.3 mmol/L (3.5-5.5); Sodium, Blood 140 mmol/L (136-145)
[2021-10-29 05:38] LABS: BAND PERCENT MAN 26 % (0-8); BASOPHILS PERCENT MAN 0 % (0-2); EOSINOPHILS PERCENT MAN 1 % (0-6); LYMPHOCYTES ABSOLUTE MAN 0.85 K/mm3 (0.84-5.20); LYMPHOCYTES PERCENT MAN 8 % (21-46); MONOCYTES ABSOLUTE MAN 0.53 K/mm3 (0.16-1.47); MONOCYTES PERCENT MAN 5 % (4-13); NEUTROPHILS ABSOLUTE MAN 9.23 K/mm3 (1.96-9.15); SEG NEUTROPHILS PERCENT MAN 60 % (41-73); TOTAL CELLS COUNTED 100
--- NOTE | 2021-10-29 07:44 | NUR ---
SUMMARY NO FURTHER CHANGES.PT SLEEPING.
--- NOTE | 2021-10-29 15:58 | NUR ---
POD 8 R MAURA COLECTOMY; AA0X4. PT HAS BEEN PASSING FLATUS, NO BM TODAY. PT MOVING WELL WITH THERAPY, AMBULATING IN THE ROOM. TOLERATING PO WELL, NO NAUSEA. DENIES PAIN DURING SHIFT. MIDLINE DRESSING REMAINS CDI. HAS BEEN IN AFIB DURING SHIFT. NO CHEST PAIN. PLAN IS TO CONTINUE ADVANCING DIET AND ENCOURAGAIN AMBULATION
--- NOTE | 2021-10-30 04:23 | NUR ---
SHIFT SUMMARY NO ACUTE CHANGES THIS SHIFT. PT RESTED WELL. ULTRAM + X1 IV FENTANYL FOR ABD PAIN. INCISION TO ABD REMAINS CLEAN AND DRY. PT PASSING GAS + REPORTS BURPING. 1 ASSIST TO BSC. TELE IN PLACE. USES CALL LIGHT APPROPRIATELY.
[2021-10-30 08:02] LABS: Anion Gap 5 mmol/L (6-16); Blood Urea Nitrogen 15 mg/dL (8-24); Bun/Creatinine Ratio 24.1 (12.0-20.0); CO2, Blood 30 mmol/L (21-32); Calcium, Blood 8.4 mg/dL (8.5-10.1); Chloride, Blood 104 mmol/L (98-108); Creatinine, Blood 0.62 mg/dL (0.40-1.00); Glomerular Filtration Rate >60 (60-); Glucose, Blood 136 mg/dL (70-99); Potassium, Blood 3.7 mmol/L (3.5-5.5); Sodium, Blood 139 mmol/L (136-145)
--- NOTE | 2021-10-30 17:53 | NUR ---
SHIFT SUMMARY POD 9 R MAURA COLECTOMY. PT PASSING GAS TODAY, TOLERATING PO WELL. VERY PICKY WITH DIET, DIFFICULT TO FIND FOODS SHE LIKES. PAIN CONTROLLED PER EMAR. PT UP TO CHAIR AND WORKING WITH PT/OT TODAY. NSR DURING SHIFT. PLAN TO CONTINUE AMBULATION AND DO SMALL BOWEL FOLLOW THROUGH TOMORROW.
--- NOTE | 2021-10-31 04:10 | NUR ---
SHIFT SUMMARY NO ACUTE CHANGES THIS SHIFT. ULTRAM FOR ABD PAIN PRN. INCISION TO ABD REMAINS CDI. PT DID HAVE A SMALL BM THIS SHIFT. PLAN FOR SBFT TODAY. USES CALL LIGHT APPROPRIATELY.
--- NOTE | 2021-10-31 18:19 | NUR ---
SHIFT SUMMARY PATIENT ORIENTED WHEN AWAKE. SMALL BOWEL FOLLOW-THROUGH DONE THIS AM. FREQUENT LIQUID BOWEL MOVEMENTS THIS SHIFT. ABD DISTENTION AND NAUSEA IMPROVED IN AFTERNOON. TOLERATING CLEAR LIQUIDS. SBA TO COMMODE. MIDLINE ABD INCISION OPEN TO AIR WNL. WILL REPORT TO LANDSCAPE CREW MEMBER RN.
--- NOTE | 2021-11-01 05:00 | NUR ---
TRANSIT MAN SUMMARY PATIENT WAS ALERT AND ORIENTED AND COOPERATIVE WITH CARE THROUGHOUT SHIFT. SHE REPORTED 9/10 PAIN IN HER BACK AND ABDOMEN, AND WAS MEDICATED WITH TRAMADOL PER EMAR. PATIENT EXPERIENCED FREQUENT DIARRHEA THROUGHOUT THE SHIFT. DR. CANO WAS NOTIFIED OF DIARRHEA, PER DAY SHIFT RN. PATIENT CONTINUES TO HAVE MODERATE BUT IMPROVING DISTENTION OF THE ABDOMEN. NO FURTHER CARDIAC EVENTS THIS SHIFT. VSS. PATIENT REPORTS SPITTING UP SMALL AMOUNTS OF FLUID BUT DENIES NAUSEA.
[2021-11-01 07:25] LABS: BASOPHILS ABSOLUTE AUTO 0.01 K/mm3 (0.00-0.23); BASOPHILS PERCENT AUTO 0 % (0-2); EOSINOPHILS ABSOLUTE AUTO 0.04 K/mm3 (0.00-0.68); EOSINOPHILS PERCENT AUTO 0 % (0-6); Hematocrit 22.1 % (33.0-51.0); Hemoglobin 7.4 g/dL (11.5-16.0); IMMATURE GRAN ABSOLUTE AUTO 0.04 K/mm3 (0.00-0.10); IMMATURE GRAN PERCENT AUTO 0 % (0-1); LYMPHOCYTES ABSOLUTE AUTO 0.61 K/mm3 (0.84-5.20); LYMPHOCYTES PERCENT AUTO 7 % (21-46); MONOCYTES ABSOLUTE AUTO 0.86 K/mm3 (0.16-1.47); MONOCYTES PERCENT AUTO 10 % (4-13); Mean Corpuscular HGB 35.7 pg (26.0-34.0); Mean Corpuscular HGB Conc 33.5 g/dL (31.5-36.5); Mean Corpuscular Volume 107 fL (80-100); Mean Platelet Volume 9.4 fL (9.1-12.4); NEUTROPHILS ABSOLUTE AUTO 7.44 K/mm3 (1.96-9.15); NEUTROPHILS PERCENT AUTO 83 % (41-73); Platelet Count 454 K/mm3 (150-400); RDW Standard Deviation 61.4 fL (35.1-46.3); Red Blood Cell Count 2.07 M/mm3 (3.80-5.20)
[2021-11-01 07:36] LABS: Anion Gap 11 mmol/L (6-16); Blood Urea Nitrogen 18 mg/dL (8-24); CO2, Blood 29 mmol/L (21-32); Calcium, Blood 8.5 mg/dL (8.5-10.1); Chloride, Blood 103 mmol/L (98-108); Glomerular Filtration Rate >60 (60-); Glucose, Blood 77 mg/dL (70-99); Potassium, Blood 2.8 mmol/L (3.5-5.5); Sodium, Blood 143 mmol/L (136-145)
[2021-11-01 13:06] LABS: Anion Gap 9 mmol/L (6-16); Blood Urea Nitrogen 17 mg/dL (8-24); Bun/Creatinine Ratio 26.6 (12.0-20.0); CO2, Blood 30 mmol/L (21-32); Calcium, Blood 8.4 mg/dL (8.5-10.1); Chloride, Blood 102 mmol/L (98-108); Creatinine, Blood 0.64 mg/dL (0.40-1.00); Glomerular Filtration Rate >60 (60-); Glucose, Blood 88 mg/dL (70-99); Potassium, Blood 2.8 mmol/L (3.5-5.5); Sodium, Blood 141 mmol/L (136-145)
--- NOTE | 2021-11-01 18:16 | NUR ---
SHIFT SUMMARY: POD 10 BOWEL OBSTRUCTION PT AOX4. PT TOLERATING PO MEDICATION WITH BITES OF APPLESAUCE. SBA TO COMMODE, 1 SMALL BM BROWN/LOOSE. ABD DISTENDED/FIRM, MIDLINE ABD INCISION OPEN TO AIR AND WNL. EDEMA PRESENT BILATERAL IN LOWER EXTREMITIES +2.
--- NOTE | 2021-11-01 19:10 | NUR ---
pts son and daughter in law state patients belches smell faintly of stool
[2021-11-02 05:08] LABS: Anion Gap 9 mmol/L (6-16); Blood Urea Nitrogen 18 mg/dL (8-24); Bun/Creatinine Ratio 28.8 (12.0-20.0); CO2, Blood 28 mmol/L (21-32); Calcium, Blood 8.3 mg/dL (8.5-10.1); Chloride, Blood 105 mmol/L (98-108); Creatinine, Blood 0.62 mg/dL (0.40-1.00); Glomerular Filtration Rate >60 (60-); Glucose, Blood 83 mg/dL (70-99); Magnesium, Blood 1.8 mg/dL (1.6-2.4); Potassium, Blood 4.1 mmol/L (3.5-5.5); Sodium, Blood 142 mmol/L (136-145)
--- NOTE | 2021-11-02 05:08 | NUR ---
[employer] SUMMARY PATIENT CONTINUES TO HAVE DIARRHEA THOUGH WITH LESS FREQUENCY THAN LAST NIGHT. ABD INCISION APPEARS WNL. PATIENT'S ABDOMEN REMAINS DISTENDED BUT LESS FIRM THAN LAST NIGHT. PATIENT COMPLAINED OF 10/10 PAIN. SHE WAS MEDICATED WITH TRAMADOL PER EMAR AND SLEPT FOR MUCH OF THE NIGHT. SHE WAS GIVEN IV POTASSIUM AND HER POTASSIUM LEVELS RETURNED TO NORMAL LIMITS. PATIENT DENIES NAUSEA OR VOMITING. VSS.
[2021-11-02] MEDS ORDERED: METAMUCIL POWD798 GM PO (12:59)
[2021-11-02] MEDS ORDERED: TRAM50 PO (13:00)
[2021-11-02] MEDS ORDERED: CARDIZEM CD180 M1 PO (13:05)
--- NOTE | 2021-11-02 14:51 | NUR ---
1435 PTS SON AND DAUGHTER IN LAW AT BEDSIDE HELPING PT GET DRESSED PRIOR TO DISCHARGE. PTS FAMILY MEMBERS ASK THAT I LOOK AT HER FEET THEY ARE CONCERNED THAT SHE HAS PURPLISH DISCOLARATION IN PATCHES TO RIGHT PINKY TOE AND SOLES OF BILATERAL FEET. PT SITTING IN CHAIR WITH FEET ON FLOOR. BILATERAL FEET WITH 2+ EDEMA, COOL. SPOKE WITH DR SMITH REGARDING DISCOLORATION AND PHYSICIAN WILL SEE PATIENT PRIOR TO DISCHARGE
--- NOTE | 2021-11-02 15:12 | NUR ---
DR CARIAS HERE AND CHECKED PATIENTS FEET AND DISCUSSED FINDINGS WITH PATIENT AND FAMILY. PATIENT AND FAMILY IN AGREEMENT WITH PLANS TO DISCHARGE TO HOME TODAY
--- NOTE | 2021-11-02 15:35 | NUR ---
DISCHARGE PT DISCHARGE HOME WITH SON/DAUGHTER IN LAW. TOLERATING SOFT FOODS AND FLUID. EDUCATION AND DISCHARGE INSTRUCTIONS PROVIDED TO PATIENT/SON/DAUGHTER IN LAW. HARD COPY OF PRESCRIPTION GIVEN TO DAUGHTER IN LAW.
== END 2021-11-02 15:18 | disposition home health service (06) | DRG 329 ==
LOC: ER 21:35 → SURS 10-21 03:18 → ICUE 10-21 03:18 → MEDS 10-21 03:18 → ICUE 10-21 17:59 → SURS 10-23 17:20
PROVIDERS: Family Medicine; Hospitalist; Internal Medicine; Physician Assistant; Surgery; ADMIT Family Medicine
PROC: 0DTF0ZZ Resection of Right Large Intestine, Open Approach (ICD-10-PCS; principal; 2021-10-21 10:45)
DX: K56.609 Unspecified intestinal obstruction, unspecified as to partial versus complete obstruction (principal); E43 Unspecified severe protein-calorie malnutrition; K59.39 Other megacolon; I47.1 Supraventricular tachycardia; D59.12 Cold autoimmune hemolytic anemia; Z68.1 Body mass index [BMI] 19.9 or less, adult; R64 Cachexia; D72.829 Elevated white blood cell count, unspecified; I95.9 Hypotension, unspecified; Z20.822 Contact with and (suspected) exposure to COVID-19; K56.2 Volvulus; E87.6 Hypokalemia; K56.7 Ileus, unspecified; I48.91 Unspecified atrial fibrillation; J44.9 Chronic obstructive pulmonary disease, unspecified; I10 Essential (primary) hypertension; E03.9 Hypothyroidism, unspecified; R79.89 Other specified abnormal findings of blood chemistry; Z79.890 Hormone replacement therapy; Z90.710 Acquired absence of both cervix and uterus; Z88.6 Allergy status to analgesic agent; Z90.49 Acquired absence of other specified parts of digestive tract; Z98.49 Cataract extraction status, unspecified eye; Z79.899 Other long term (current) drug therapy; Z90.89 Acquired absence of other organs
CPT/HCPCS: 0241U; 36415; 71045; 74018; 74019; 74177; 74250; 80048; 80053; 81001; 82607; 82728; 82746; 83540; 83550; 83605; 83690; 83735; 84443; 84484; 85014; 85018; 85025; 86850; 86870; 86900; 86901; 86906; 88307; 93005; 93010; 93306; 94640; 94664; 94760; 94762; 96374; 96375; 96376; 97110; 97116; 97162; 97166; 97530; 97535; 99285-25; A9270; C9113; J0153; J0282; J0295; J1100; J1170; J1650; J1940; J2370; J2405; J2704; J2765; J3010; J3475; J3480; J7030; J7040; J7050; J7120; J7121; Q9967

== ENCOUNTER 2021-12-03 12:33 | Emergency (ER) | payer MEDICARE ==
[~2021-12-03] VITALS: Ht 152.4 cm; Wt 42.2 kg
[~2021-12-03 12:33] MED LIST: ALBU90OI INH; B-12500 MC1; CARDIZEM CD180 M1 PO; DEXAMETHASONE PO; DILT30 PO; DOCU100 PO; EUTHYROX50 MCG PO; FOLI1 PO; FURO20 PO; METAMUCIL POWD798 GM PO; POLYMYXIN B-TMP10 ML BOTHEYES; TRAM50 PO; WIXELA 250-501 EAC1 INH; [UNRECOGNIZED DRUG - OTHER] PO
[2021-12-03 13:46] LABS: Source, Urine Clean Catch
[2021-12-03 13:51] LABS: Appearance, Urine Hazy (Clear); Blood, Urine 1+ (Neg); Color, Urine Amber (P-Yellow); Glucose Qualitative, Urine Neg (Neg); Ketones, Urine Neg (Neg); Leukocyte Esterase, Urine 1+ (Neg); Nitrite, Urine Neg (Neg); Protein, Urine 2+ (Neg); Urobilinogen, Urine 2+ (Normal)
[2021-12-03 13:52] LABS: Albumin, Blood 3.4 g/dL (3.4-5.0); Albumin/Globulin Ratio 1.1 (0.8-1.8); Bilirubin, Total 2.4 mg/dL (0.1-1.0); Bun/Creatinine Ratio 33.4 (12.0-20.0); Calcium, Blood 8.7 mg/dL (8.5-10.1); Creatinine, Blood 0.54 mg/dL (0.40-1.00); Potassium, Blood 4.2 mmol/L (3.5-5.5); Total Protein, Blood 6.4 g/dL (6.4-8.2)
[2021-12-03 14:20] LABS: BASOPHILS ABSOLUTE AUTO 0.03 K/mm3 (0.00-0.23); BASOPHILS PERCENT AUTO 0 % (0-2); EOSINOPHILS ABSOLUTE AUTO 0.06 K/mm3 (0.00-0.68); EOSINOPHILS PERCENT AUTO 1 % (0-6); Hematocrit 25.7 % (33.0-51.0); Hemoglobin 8.2 g/dL (11.5-16.0); IMMATURE GRAN ABSOLUTE AUTO 0.12 K/mm3 (0.00-0.10); IMMATURE GRAN PERCENT AUTO 1 % (0-1); LYMPHOCYTES ABSOLUTE AUTO 1.39 K/mm3 (0.84-5.20); LYMPHOCYTES PERCENT AUTO 12 % (21-46); MONOCYTES PERCENT AUTO 9 % (4-13); Mean Corpuscular HGB 33.7 pg (26.0-34.0); Mean Corpuscular HGB Conc 31.9 g/dL (31.5-36.5); Mean Corpuscular Volume 106 fL (80-100); Mean Platelet Volume 9.9 fL (9.1-12.4); NEUTROPHILS ABSOLUTE AUTO 8.96 K/mm3 (1.96-9.15); NEUTROPHILS PERCENT AUTO 78 % (41-73); Platelet Count 339 K/mm3 (150-400); RDW Standard Deviation 64.6 fL (35.1-46.3); Red Blood Cell Count 2.43 M/mm3 (3.80-5.20); White Blood Cell Count 11.56 K/mm3 (4.00-11.30)
[2021-12-03 14:33] LABS: Bilirubin, Urine 1+ (Neg)
[2021-12-03 14:34] LABS: Bacteria Many /hpf; Mucus Mod (0-Heavy); Squamous Epithelial Cells Mod /hpf (Few)
[2021-12-03] MEDS ORDERED: Macrobid 100 M100 MG PO (15:38)
== END 2021-12-03 15:55 | disposition home or self-care (01) ==
LOC: ER 12:33
PROVIDERS: Physician Assistant
DX: N39.0 Urinary tract infection, site not specified (principal); K59.00 Constipation, unspecified; J44.9 Chronic obstructive pulmonary disease, unspecified; Z79.899 Other long term (current) drug therapy
CPT/HCPCS: 36415; 74177; 80053; 81001; 83690; 85025; A9270; Q9967

== ENCOUNTER → 2022-02-12 | Outpatient (CLI) | payer MEDICARE ==
[~2022-02-12] MED LIST changes: +AMOCLA500 PO; +B-12500 MC2 PO; +DIGOX125 MC1 PO; +Macrobid 100 M100 MG PO; +PRED20 PO; +VISBIOME 112.51 EACH PO
[2022-02-12 15:10] LABS: Bun/Creatinine Ratio 46.2 (12.0-20.0); Calcium, Blood 9.1 mg/dL (8.5-10.1); Creatinine, Blood 0.56 mg/dL (0.40-1.00); Potassium, Blood 3.8 mmol/L (3.5-5.5)
== END | disposition home or self-care (01) ==
LOC: LAB 13:15 → LAB SHORT 13:15
PROVIDERS: Family Medicine
DX: E86.0 Dehydration (principal)
CPT/HCPCS: 80048